=== PATIENT | female | born 1995 | race Two or more races ===

== ENCOUNTER 2021-10-19 08:42 | Emergency (ER) | payer MEDICAID ==
[~2021-10-19] VITALS: Ht 162.6 cm; Wt 59.0 kg
[2021-10-19 09:25] VITALS: BP 145/83
[2021-10-19] MEDS ORDERED: IBUPROFEN 800 MG TAB PO ONE (09:30)
[2021-10-19] MEDS ORDERED: cefTRIAXone SOD 1,000 MG VL IM ONE (09:30)
[2021-10-19] MEDS ORDERED: CEPH500C PO (09:55)
[2021-10-19] MEDS ORDERED: IBUP800T26 PO (09:56)
== END 2021-10-19 10:23 | disposition home or self-care (01) ==
LOC: ER 08:42
DX: S80.861A Insect bite (nonvenomous), right lower leg, initial encounter (principal); L03.115 Cellulitis of right lower limb; E03.9 Hypothyroidism, unspecified; W57.XXXA Bitten or stung by nonvenomous insect and other nonvenomous arthropods, initial encounter; Y93.89 Activity, other specified; Y92.89 Other specified places as the place of occurrence of the external cause; Y99.8 Other external cause status
CPT/HCPCS: 96372; 99283; J0696